=== PATIENT | female | born 1965 | race Caucasian/White ===

== ENCOUNTER 2018-09-23 18:12 | Emergency (ER) | payer OTHER ==
[~2018-09-23] VITALS: Ht 172.7 cm; Wt 99.1 kg
[2018-09-23 18:39] VITALS: BP 139/95
[2018-09-23] MEDS ORDERED: CEFTRIAXONE PMX 1GM/50ML 50 ML ONE (20:22)
[2018-09-23] MEDS ORDERED: LIDOCAINE-MPF 1%, 5ML ONE ×2 (20:23→20:24)
[2018-09-23] MEDS ORDERED: CEFTRIAXONE PMX 1GM/50ML 50 ML IV ONE (20:30)
[2018-09-23] MEDS ORDERED: LIDOCAINE-MPF 2%, 2ML INFIL ONE (20:30)
== END 2018-09-23 22:06 | disposition home or self-care (01) ==
LOC: ED 21:14
DX: L03.213 Periorbital cellulitis (principal)
CPT/HCPCS: 10060; 96365; 99284; J0696; J3490